=== PATIENT | female | born 1965 | race Caucasian/White ===

== ENCOUNTER 2018-03-10 16:54 | Outpatient (CLI) | payer OTHER ==
[~2018-03-10 16:54] MED LIST: Iopamidol 370 76% 125 ML VIAL FS ONE
[2018-03-10 17:19] LABS: #Basophils 0.1 thou/uL (0.0-0.2); #Eosinphils 0.2 thou/uL (0.0-0.7); #Lymphocytes 1.7 thou/uL (1.20-3.40); #Monocytes 0.7 thou/uL (0.11-0.59); #Neutrophils 3.8 thou/uL (1.40-6.50); %Eosinophils 2.8 % (0.0-10.0); %Lymphocytes 26.3 % (21.0-51.0); %Monocytes 10.6 % (0.0-10.0); %Neutrophils 59.3 % (42.0-75.0); Hemoglobin 14.3 g/dL (12.0-16.0); Mean Corpuscular HGB CONC 33.5 g/dL (32.0-36.0); Mean Corpuscular Hemoglobin 28.6 pg (27.0-31.0); Mean Corpuscular Volume 85.4 fL (78.0-98.0); Mean Platelet Volume 6.9 fL (7.4-10.4); Platelet Count 259 thou/uL (130-400); RBC Distribution Width 11.3 % (11.5-14.5); Red Blood Cell (RBC) Count 4.98 mill/uL (4.20-5.40); White Blood Cell (WBC) Count 6.3 thou/uL (4.8-10.8)
[2018-03-10 17:34] LABS: ALT (SGPT) 39 U/L (8-55); AST (SGOT) 30 U/L (5-34); Albumin 4.4 g/dL (3.5-5.0); Alkaline Phosphatase 67 U/L (40-150); Anion Gap 13 mmol/L (10-20); BUN (Urea Nitrogen) 8 mg/dL (9.8-20.1); Bilirubin, Total 0.4 mg/dL (0.2-1.2); Calc. Creatinine Clearance 0 mL/min (70-130); Calcium 9.4 mg/dL (7.8-10.44); Carbon Dioxide 28 mmol/L (22-29); Chloride 103 mmol/L (98-107); Estimated GFR-MDRD 76; Globulin 2.9 g/dL (2.4-3.5); Glucose 94 mg/dL (70-105); Potassium 4.1 mmol/L (3.5-5.1); Protein, Total 7.3 g/dL (6.0-8.3); Sodium 140 mmol/L (136-145)
--- NOTE | 2018-03-10 19:15 | CT ---
CT ABDOMEN AND PELVIS WITH IV CONTRAST 03/10/18 HISTORY: Abdominal pain and nausea. FINDINGS: A 6 mm noncalcified pulmonary nodule is seen at the lateral aspect left lower lobe. Lung bases are ot herwise clear. There is mild right hydronephrosis of uncertain etiology. The right ureter is normal in caliber and t here is no calculus seen along the course of the right ureter. The right kidney otherwise has a mavis l CT appearance. The liver, spleen, pancreas, bilateral adrenal glands, left kidney, urinary bladder, and uterus demon strate a normal CT appearance. Opacified small bowel is normal in caliber. Fluid filled loops of ileum are present which are also no t dilated. The appendix is not visualized, but there are no secondary signs to suggest appendicitis. Minimal vascular calcifications are seen in the abdominal aorta. No free fluid, fluid collection, or lymphadenopathy is seen in the abdomen or pelvis. Degenerative changes are seen at the lumbosacral junction. IMPRESSION: 1. Left lower lobe pulmonary nodule, CT thorax on an nonemergent basis is recommended for furthe r evaluation. 2. Mild right hydronephrosis of uncertain etiology. The right ureter is normal in caliber, and t here is no renal or ureteral calculus visualized. 3. No findings to suggest a bowel obstruction. 4. Dilatation of the common duct at the level of the pancreatic head of uncertain etiology. No i ntrahepatic biliary ductal dilatation is seen. ERCP may be helpful for further evaluation. Code T POS: GABE
[2018-03-10 19:36] LABS: Lipase 31 U/L (8-78)
[2018-03-11 17:00] LABS: Follow-up Chemistry Comp? YES; Follow-up Result - Chemistry REPORT FAXED
== END 2018-03-10 16:55 | disposition home or self-care (01) ==
LOC: MADLAB 16:54
PROVIDERS: ATTEND Family Medicine
DX: R10.10 Upper abdominal pain, unspecified (principal); R91.1 Solitary pulmonary nodule; N13.30 Unspecified hydronephrosis; K83.8 Other specified diseases of biliary tract
CPT/HCPCS: 36415; 74177; 80053; 82150; 83615; 83690; 85025

== ENCOUNTER 2018-03-21 07:54 | Outpatient (CLI) | payer OTHER ==
--- NOTE | 2018-03-21 09:44 | ULT ---
ABDOMINAL ULTRASOUND: History: Constant abdominal pain. Comparison: None. Technique: Utilizing a multihertz transducer, sonographic imaging of the abdomen is performed in the axial and transverse plane. FINDINGS: Visualized pancreas has a normal echotexture. Visualized aorta and IVC are unremarkable. Hepatic parenchyma has a normal echotexture. No hepatic masses or anterior hepatic biliary dilatation . No sonographic evidence of cholelithiasis, gallbladder wall thickening, or pericholecystic fluid. Neg ative Rivera's sign. Limited evaluation of the common bile duct. Bilaterally, no hydronephrosis. The right kidney measures 10.3 x 5.0 x 3.9 cm. The left kidney measur es 3.2 x 3.7 x 11.7 cm. Spleen has a normal echotexture measuring 9.4 cm. IMPRESSION: 1. Limited evaluation of the common bile duct. If there is concern, consider an ERCP. POS: GABE
== END 2018-03-21 07:55 | disposition home or self-care (01) ==
LOC: MADULT 07:54
PROVIDERS: ATTEND Internal Medicine
DX: K83.8 Other specified diseases of biliary tract (principal); R10.33 Periumbilical pain; R68.81 Early satiety; R63.4 Abnormal weight loss
CPT/HCPCS: 76700